=== PATIENT | female | born 1955 | race Caucasian/White ===

== ENCOUNTER 2017-10-14 15:49 | Emergency (ER) | payer BC ==
[~2017-10-14] VITALS: Ht 157.5 cm; Wt 65.8 kg
--- NOTE | 2017-10-14 15:53 | NUR ---
ADVISED TO GO TO ER FOR D-DIMER OF 2.6, SEEN AT AN URGENT CARE YESTERDAY FOR COUGH, LT KNEE REPLACEMENT 09/04/17. PLACED ON MONITOR AWAITING MD ORDER
[2017-10-14 16:21] LABS: BASOPHILS % (AUTO) 0.3 % (0.0-2.0); EOSINOPHILS % (AUTO) 1.3 % (0.0-6.0); HEMATOCRIT 37 % (33-45); HEMOGLOBIN 13.2 g/dL (11.5-14.8); LYMPHOCYTES # (AUTO) 1.4 /CMM (0.8-4.8); LYMPHOCYTES % (AUTO) 19.6 % (20.0-44.0); MEAN CORPUSCULAR HGB CONC 36 g/dl (31.0-36.0); MEAN CORPUSCULAR VOLUME 92 fL (82-100); MONOCYTES # (AUTO) 0.5 /CMM (0.1-1.30); MONOCYTES % (AUTO) 7.4 % (2.0-12.0); NEUTROPHILS # (AUTO) 5.3 /CMM (1.8-8.9); NEUTROPHILS % (AUTO) 71.4 % (43.0-81.0); PLATELET COUNT (AUTO) 266 /CMM (150-450); RDW COEFFICIENT OF VARIATION 12.3 (11.5-15.0); RED BLOOD CELL COUNT(AUTO) 4.05 MIL/uL (4.0-5.2); WHITE BLOOD COUNT (AUTO) 7.3 K/uL (4.3-11.0)
[2017-10-14 16:29] LABS: CARBON DIOXIDE 27 mmol/L (21-32); CHLORIDE 104 mmol/L (98-107); CREATININE 0.9 mg/dL (0.6-1.3); GLUCOSE 133 mg/dL (74-106); POTASSIUM 3.9 mmol/L (3.5-5.1); SODIUM SERUM 140 mmol/L (136-145); UREA NITROGEN, BLOOD 16 mg/dL (7-18)
[2017-10-14] MEDS ORDERED: IV NS 0.9% 1,000 ML BAG IV ONE (16:30)
[2017-10-14 16:38] LABS: TROPONIN I < 0.017 ng/mL (0.00-0.056)
--- NOTE | 2017-10-14 16:50 | NUR ---
PT TAKEN TO CT
[2017-10-14 18:29] VITALS: BP 146/88
--- NOTE | 2017-10-14 18:29 | NUR ---
IV removed. Catheter intact and site benign. Pressure and 4x4 applied to site. No bleeding noted.Patient discharged to home in stable condition. Written and verbal after care instructions given. Patient verbalizes understanding of instruction.
== END 2017-10-14 18:30 | disposition home or self-care (01) ==
LOC: ER 15:57
DX: J06.9 Acute upper respiratory infection, unspecified (principal); F12.10 Cannabis abuse, uncomplicated; I10 Essential (primary) hypertension; Z96.652 Presence of left artificial knee joint; Z88.0 Allergy status to penicillin
CPT/HCPCS: 36415; 71275; 80048; 84484; 85025; 93005; 99285; A4606; J7030; Z7610